=== PATIENT | female | born 1995 ===

== ENCOUNTER 2023-05-02 15:07 | Outpatient (REF) | payer BC, SELFPAY ==
--- NOTE | 2023-05-02 08:30 | PAPFT_PTH ---
PATIENT: Amanda Wick LOC: [facility] U#:[id number] AGE/SX: 27/F ROOM: RE05/02/[address]: Marysol Connor : 1995 BED: DIS: 05/02/2023 SPEC #: [id number] RECD: 05/02/23 17:09 STATUS: WDIGHT CRUZ #: [id number] MERCEDES: 05/02/23 08:[address]: Marysol Connor DEPT: [facility] Cytology RECD BY: Hetal Stock ENTERED: 05/02/23 17:09 SP TYPE: PAPFT OTHR DR: Unknown,Unknown Tissues: 1 - CX/ENDOCX FOR PAP SMEARS Procedures: PAP THIN PREP/[facility] Screening Comments: [id number] (CHLAMYDIA/GC)
[2023-05-02 15:04] LABS: Anion Gap 6.7 mmol/L (3-11); BUN 11 mg/dL (7-18); CO2 28.3 mmol/L (21.0-32.0); CREATININE 0.6 mg/dL (0.55-1.02); Calcium 9.2 mg/dL (8.5-10.1); Calculated LDL 109 mg/dL (<100); Chloride 104 mmol/L (98-107); Cholesterol 183 mg/dL (<200); Estimated GFR 127.67 (mL/min/1.73m2); Glucose 86 mg/dL (74-106); HDL Cholesterol 62 mg/dL (40-60); Potassium 4.2 mmol/L (3.5-5.1); Sodium 139 mmol/L (136-145); TSH (W/Ref FT4) 0.01 uIU/mL (0.36-3.74); Triglyceride 64 mg/dL (<150)
[2023-05-02 15:49] LABS: FREE T4 1.09 ng/dL (0.76-1.46)
[2023-05-02 22:24] LABS: FSH 6.7 mIU/mL (See Note)
[2023-05-02 22:31] LABS: Estradiol 63 pg/mL (See Note); Prolactin 6.4 ng/mL (See Note)
[2023-05-05 16:01] LABS: Chlamydia Result Negative (Negative); GC Result Negative (Negative)
[2023-05-09 15:28] LABS: Testosterone, Total 53 ng/dL (8-60)
== END 2023-05-02 15:08 | disposition home or self-care (01) ==
LOC: NCHCN 15:07
PROVIDERS: Visit Provider Family Medicine
DX: Z00.00 Encounter for general adult medical examination without abnormal findings (principal); Z12.4 Encounter for screening for malignant neoplasm of cervix; Z01.419 Encounter for gynecological examination (general) (routine) without abnormal findings
CPT/HCPCS: 80048; 80061; 84403; 87491; 87591; 88142; 82670; 83001; 84146; 84439; 84443; 87480; 87510; 87660

== ENCOUNTER 2023-05-29 14:46 | Outpatient (REF) | payer BC, SELFPAY ==
[2023-05-29 21:52] LABS: TSH 2.15 uIU/Ml (0.36-3.74)
== END 2023-05-29 14:47 | disposition home or self-care (01) ==
LOC: NCHCN 14:46
PROVIDERS: Referring Provider Family Medicine; Visit Provider Family Medicine
DX: R53.83 Other fatigue (principal)
CPT/HCPCS: 84443

== ENCOUNTER 2023-08-28 16:35 | Outpatient (REF) | payer BC, SELFPAY ==
[2023-08-28 15:16] LABS: ALT 35 U/L (14-59); AST 21 U/L (15-37); Alkaline Phosphatase 87 U/L (46-116); Anion Gap 9.4 mmol/L (3-11); BUN 10 mg/dL (7-18); Bilirubin, Total 0.5 mg/dL (0.2-1.0); CO2 27.6 mmol/L (21.0-32.0); CREATININE 0.7 mg/dL (0.55-1.02); Calcium 9.2 mg/dL (8.5-10.1); Chloride 102 mmol/L (98-107); Estimated GFR 123.01 (mL/min/1.73m2); Glucose 93 mg/dL (74-106); Potassium 4.2 mmol/L (3.5-5.1); Sodium 139 mmol/L (136-145); Total Protein 7.4 g/dL (6.4-8.2)
== END 2023-08-28 16:36 | disposition home or self-care (01) ==
LOC: NCHCN 16:35
PROVIDERS: Visit Provider Family Medicine
DX: R10.11 Right upper quadrant pain (principal)
CPT/HCPCS: 80053